=== PATIENT | female | born 1995 | race Caucasian/White ===

== ENCOUNTER 2021-05-29 20:07 | Inpatient (IN) | payer BC ==
[2021-05-29 20:22] VITALS: BMI 24.2
[2021-05-29] MEDS ORDERED: Misoprostol 200 MCG TAB PR PRN (20:55)
[2021-05-29] MEDS ORDERED: Ibuprofen 800 MG TAB PO PRN (20:55)
[2021-05-29] MEDS ORDERED: Promethazine HCl 25 MG/ML VIAL IM PRN (20:55)
[2021-05-29] MEDS ORDERED: Ondansetron PF 4 MG/2 ML Vial IVP PRN (20:55)
[2021-05-29] MEDS ORDERED: Lidocaine 1% (PF) 30 ML VIAL SC PRN (20:55)
[2021-05-29] MEDS ORDERED: hydrALAZINE 20 MG/ML VIAL SLOW IVP PRN (20:55)
[2021-05-29] MEDS ORDERED: NS w/ Oxytocin 30 units 500 ML IV SCH (21:00)
[2021-05-29] MEDS: Misoprostol 100 MCG TAB VAG SCH (21:22)
[2021-05-29 22:05] LABS: Hemoglobin 12.1 g/dL (12.0-15.5); Mean Corpuscular HGB CONC 34.2 g/dL (32.0-36.0); Mean Corpuscular Hemoglobin 29.4 pg (27.0-33.0); Mean Corpuscular Volume 86.1 fl (81.6-98.3); Mean Platelet Volume 9.6 fl (7.4-10.4); Platelet Count 324 10x3/uL (150-450); RBC Distribution Width 13.5 % (11.5-14.5); Red Blood Cell (RBC) Count 4.11 10x6/uL (3.90-5.03); White Blood Cell (WBC) Count 11.2 10x3/uL (3.5-10.5)
[2021-05-29 22:27] LABS: Hep B Surf Ag Non-Reactive S/CO (NonReactive); Syphilis Antibody Nonreactive (Nonreactive); Syphilis Antibody Index 0.01 S/CO (<1.00 Non-Reactive)
[2021-05-29 22:56] LABS: HBSAg Index 0.11 S/CO (0-0.99)
[2021-05-30] MEDS: NS w/ Oxytocin 30 units 500 ML IV SCH ×2 (09:31→21:07)
[2021-05-30] MEDS ORDERED: Bisacodyl 10 MG SUPP PR PRN (21:08)
[2021-05-30] MEDS ORDERED: Benzocaine-Menthol 82.5 ML CAN TOP PRN (21:08)
[2021-05-30] MEDS ORDERED: Lanolin Ointment 7 GM TUBE TOP PRN (21:08)
[2021-05-30] MEDS ORDERED: Milk Of Magnesia 30 ML UDCUP PO PRN (21:08)
[2021-05-30] MEDS ORDERED: Boostrix 0.5 ML (Tdap) VIAL IM ONE (21:08)
[2021-05-30] MEDS ORDERED: hydrALAZINE 20 MG/ML VIAL SLOW IVP PRN (21:08)
[2021-05-30] MEDS ORDERED: Ibuprofen 800 MG TAB PO SCH (22:00)
[2021-05-31] MEDS: Misoprostol 100 MCG TAB VAG SCH ×2 (07:24→07:25)
[2021-05-31] MEDS: Ferrous Sulfate 325 MG TAB PO SCH ×2 (07:24→16:40)
[2021-05-31] MEDS: Ibuprofen 800 MG TAB PO SCH ×2 (08:34→16:48)
[2021-05-31] MEDS: Docusate Calcium (SURFAK) 240 MG CAP PO SCH ×2 (08:34→20:23)
[2021-05-31] MEDS: Prenatal Vitamin 1 TAB PO SCH (08:34)
[2021-05-31] MEDS: traMADol HCl 50 MG TAB PO PRN ×2 (12:59→20:23)
[2021-05-31 17:34] LABS: SARS-CoV-2 PCR by NAA Not Detected (NotDetected)
[2021-06-01] MEDS: Ibuprofen 800 MG TAB PO SCH ×3 (04:31→13:52)
[2021-06-01 07:18] VITALS: BP 100/61; TEMP 98.5
[2021-06-01] MEDS: Ferrous Sulfate 325 MG TAB PO SCH (07:54)
[2021-06-01] MEDS: Docusate Calcium (SURFAK) 240 MG CAP PO SCH (08:34)
[2021-06-01] MEDS: traMADol HCl 50 MG TAB PO PRN (08:37)
[2021-06-01] MEDS: Prenatal Vitamin 1 TAB PO SCH (08:39)
== END 2021-06-01 16:40 | disposition home or self-care (01) | DRG 806 ==
LOC: CSHLD 20:07 → CSHPP 05-30 23:40
PROVIDERS: ADMIT Obstetrics & Gynecology; ATTEND Obstetrics & Gynecology
PROC: 10E0XZZ Delivery of Products of Conception, External Approach (ICD-10-PCS; principal; 2021-05-31)
PROC: 0KQM0ZZ Repair Perineum Muscle, Open Approach (ICD-10-PCS; 2021-05-31)
PROC: 3E033VJ Introduction of Other Hormone into Peripheral Vein, Percutaneous Approach (ICD-10-PCS; 2021-05-31)
DX: O36.5930 Maternal care for other known or suspected poor fetal growth, third trimester, not applicable or unspecified (principal); O41.03X0 Oligohydramnios, third trimester, not applicable or unspecified; O70.1 Second degree perineal laceration during delivery; Z20.822 Contact with and (suspected) exposure to COVID-19; Z37.0 Single live birth; Z3A.38 38 weeks gestation of pregnancy
CPT/HCPCS: 36415; 85027; 86780; 86850; 86900; 86901; 87340; 99282; J2590; U0003; U0005